=== PATIENT | male | born 1990 | race Caucasian/White ===

== ENCOUNTER 2025-07-14 16:15 | Emergency (ER) | payer OTHER, SELFPAY ==
[2025-07-14 16:26] VITALS: BP 119/79; PULSE 75; RESP 18; TEMP 36.9; O2SAT 98
--- NOTE | 2025-07-14 17:25 | ED_ITS ---
HPI - Dental/Oral General Chief complaint: Dental/Oral Stated complaint: Fever / Body aches Time Seen by Provider: 07/14/25 17:33 Source: RN notes reviewed and old records reviewed Mode of arrival: ambulatory Limitations: no limitations History of Present Illness HPI Narrative: 35 year old male who presents to [facility] care with complaints of 7 day history of mouth and tongue burning intermittently. Patient reports that he started last Saturday with feelings of chills and body aches and he had sensation of burning in mouth and tongue. He reports that he has history of [place] Palsy 4 years ago and started with similar symptoms like he has today. Patient reports that he has no dental pain or any noted lesions in mouth. No facial drooping noted able to squint eyes firmly closed and open denies pain to face. Onset (ago): week(s) (1) Duration: intermittent Severity scale (1-10): 6 Treatment prior to arrival: oral analgesic (Ibuprofen) Related Data Allergies Allergy/AdvReac Type Severity Reaction Status Date / Time No Known Allergies Allergy Verified 07/14/25 16:34 Review of Systems Review of Systems: CONSTITUTIONAL: has felt feverish, chills, or sweats. EYES: Denies visual changes, redness, or discharge. ENT: Denies rhinorrhea, congestion, sore throat, or otalgia.reports intermittent tongue and mouth burning with no dental pain or any visible lesions in mouth CARDIOVASCULAR: Denies chest pain, palpitations, or edema. RESPIRATORY: Denies cough or dyspnea. GASTROINTESTINAL: Denies abdominal pain, nausea, vomiting, or diarrhea. GENITOURINARY: Denies dysuria or hematuria. SKIN: Denies rash or itching. MUSCULOSKELETAL: Denies back pain, joint pain, reports body aches NEUROLOGIC: Denies headache, numbness, or weakness. PSYCHIATRIC: Denies anxiety or depression. 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 There is no relevant family history pertinent to the presenting complaint Exam Narrative: GENERAL: Well-appearing, well-nourished, and in no acute distress. HEAD: Normocephalic, atraumatic. EYES: PERRLA and EOMI. ENT: Nares clear, no rhinorrhea or epistaxis. Mucous membranes moist.no lesions or reported dental pain, states intermittent burning to mouth and throat, denies any difficulty with his breathing or swallowing, no facial droop,face is symmetrical no acute redness of tongue or oral cavity, no pain to face NECK: Supple. no lymphadenopathy CHEST: Clear to auscultation. No respiratory distress. no acute cough, SAO2 98% on room air HEART: Regular rate and rhythm. No murmur heard. Normal peripheral pulses. ABDOMEN: Soft, nontender, nondistended, normal active bowel sounds. EXTREMITIES: Normal range of motion. No edema. SKIN: Warm, dry, no rash. NEURO: No focal deficits. Alert and oriented x3. Course Course Emergency Course: Patient is aware of diagnosis, understands and agrees to treatment plan.? Anticipatory guidance given.? Patient agrees to follow-up as directed and is aware of reasons to seek care at the emergency department. Portions of this record may have been created with voice recognition software Level of Care: Express Care Visit Vital Signs Vital signs: Vital Signs Temperature 36.9 C 07/14/25 16:26 Pulse Rate 75 07/14/25 16:26 Respiratory Rate 18 07/14/25 16:26 Blood Pressure 119/79 07/14/25 16:26 Pulse Oximetry 98 07/14/25 16:26 Oxygen Delivery Room Air 07/14/25 16:26 Temperature 36.9 C 07/14/25 16:26 Pulse Rate 75 07/14/25 16:26 Respiratory Rate 18 07/14/25 16:26 Blood Pressure 119/79 07/14/25 16:26 Pulse Oximetry 98 07/14/25 16:26 Oxygen Delivery Room Air 07/14/25 16:26 Reviewed MDM - Dental/Oral Differential Diagnosis Differential diagnosis: Likely gingival abscess and other (tongue and mouth burning intermittent, viral infection,gingivitis) Medical Records Attestation: I reviewed the patient's medical records. Medical records narrative: strep screen negative, strep culture sent, COVID antigen negative, Influenza A & B Lab Data Lab results narrative: strep screen negative, strep culture sent, COVID antigen negative, Influenza A&B negative Labs: Lab Results 07/14/25 07/14/25 Range/Units 17:48 17:49 POC Influenza A Ag Negative (Negative) POC Influenza B Ag Negative (Negative) POC SARS CoV-2 Ag Negative (Negative) POC Grp A Strep Screen Negative (Negative) reviewed Critical Care Time Critical Care Time Critical Care Time: No Discharge Plan Discharge Clinical Impression: Oral pain Patient Disposition: Home Condition: Stable Instructions: Gingivostomatitis (ED) Additional Instructions: Avoid temperature extremes May apply heat or ice to the face Gentle brushing and flossing Tylenol for lesser pain Use ibuprofen regularly magic mouthwash as prescribed If your symptoms persist, change or worsen significantly before you can contact your personal physician then please, without delay, go to the emergency department for further evaluation. Follow-up with PCP in 7-10 days or sooner if needed Follow up with PCP soon in regards to your blood pressure which is elevated above threshold for referral. Blood pressure above 120/80 may indicate pre- hypertension. Patient Language: [place] Prescriptions: New prednisone 20 mg tablet 20 mg PO BID Qty: 10 0RF Rx Instructions: take with food Magic Mouthwash (Dr. Bullock) 120 mL suspension 10 ml PO QID PRN (Reason: oral pain) Qty: 120 0RF Rx Instructions: diphenhydramine 12.5 mg/5 mL oral elixir 40 mL; Lidocaine Viscous 2 % mucosal solution 40 mL; Maalox 200 mg-200 mg-20 mg/5 mL oral suspension 40 mL; Per 120 mL Follow-up/Referrals: PHYSICIAN,BOX SEALING INSPECTOR [Primary Care Provider, Internal Medicine] Stand Alone Forms: Work/School Release IP Time of Disposition: 17:56 Quality [place] Coma Scale Eyes: Open Verbal: Oriented and Alert Motor: Follows Commands [place] Coma Total Score: 15
[2025-07-14 17:50] LABS: EDINFLUASCREEN Negative (Negative); EDINFLUBSCREEN Negative (Negative); EDSTREPNEGPOS1 Negative (Negative)
[2025-07-14 17:50] LABS: EDCOVIDSCREEN Negative (Negative)
== END 2025-07-14 18:10 | disposition home or self-care (01) ==
PROVIDERS: Emergency Provider Registered Nurse
DX: K13.79 Other lesions of oral mucosa (principal); F17.210 Nicotine dependence, cigarettes, uncomplicated; Z20.822 Contact with and (suspected) exposure to COVID-19
CPT/HCPCS: 87081; 87426; 87804; 87880; 99203; G0463